=== PATIENT | female | born 1995 | race Caucasian/White ===

== ENCOUNTER 2019-08-22 12:32 | Emergency (ER) | payer MEDICAID ==
[~2019-08-22] VITALS: Ht 157.5 cm; Wt 52.2 kg
[2019-08-22 13:20] VITALS: BP 106/70
== END 2019-08-22 13:45 | disposition left against medical advice (07) ==
LOC: ER 12:32
DX: R21 Rash and other nonspecific skin eruption (principal); Z53.21 Procedure and treatment not carried out due to patient leaving prior to being seen by health care provider

== ENCOUNTER 2020-12-22 16:07 | Emergency (ER) | payer MEDICAID ==
[~2020-12-22] VITALS: Ht 157.5 cm; Wt 54.4 kg
[2020-12-22] MEDS ORDERED: cefTRIAXone SOD 1,000 MG VL IM ONE (19:00)
[2020-12-22] MEDS ORDERED: AZITHROMYCIN 250 MG TAB PO ONE (19:00)
[2020-12-22 19:15] VITALS: BP 130/82
[2020-12-22] MEDS ORDERED: LIDOCAINE 1% HCL (LOCAL ANESTH.) INJ 20ML MDV ID ONE (19:15)
== END 2020-12-22 20:43 | disposition home or self-care (01) ==
LOC: ER 16:07
DX: N39.0 Urinary tract infection, site not specified (principal); N93.9 Abnormal uterine and vaginal bleeding, unspecified; J45.909 Unspecified asthma, uncomplicated; F20.9 Schizophrenia, unspecified; R00.0 Tachycardia, unspecified; Z98.890 Other specified postprocedural states; Z20.2 Contact with and (suspected) exposure to infections with a predominantly sexual mode of transmission
CPT/HCPCS: 74176; 81002; 81025; 96372; 99284; J0696; J2001